=== PATIENT | female | born 1980 | race Caucasian/White ===

== ENCOUNTER 2020-09-18 22:52 | Inpatient (IN) | payer BC, MEDICAID, SELFPAY ==
[2020-09-18 22:53] VITALS: BP 139/90; PULSE 106; RESP 16; TEMP 36.8; O2SAT 98; BMI 30.9
--- NOTE | 2020-09-18 23:13 | EDS_ITS ---
HPI History of Present Illness Chief Complaint: Substance Abuse Narrative Narrative: Patient requesting alcohol detox. She has had approximately 10 drinks of malt liquor today. She drinks daily. She has been through detox in May of this year at an out lying facility. Stated she does not do any other illicit drug use. Open to get clean. Denies . [facility] Medical History (Updated 09/18/20 @ 23:14 by Lu Nguyen) Asthma Bulging of cervical intervertebral disc Post concussive syndrome Sciatic nerve pain Home Medications buspirone [BuSpar] 10 mg PO PRN PRN 09/18/20 [History Last Taken Unknown] buspirone [BuSpar] 10 mg PO QHS 09/18/20 [History Last Taken Unknown] gabapentin 650 mg PO TID 09/18/20 [History Last Taken Unknown] hydroxyzine pamoate [Vistaril] 25 mg PO BID 09/18/20 [History Last Taken Unknown] methocarbamol [Robaxin] 750 mg PO Q8H 09/18/20 [History Last Taken Unknown] paroxetine HCl [Paxil] 30 mg PO DAILY 09/18/20 [History Last Taken Unknown] Allergy/AdvReac Type Severity Reaction Status Date / Time No Known Allergies Allergy Verified 09/18/20 22:54 Social History Smoking Status: Current every day smoker tobacco type: cigarettes ROS ROS ED ROS Narrative ROS General: Denies fever, chills, sweats Eyes: Denies visual changes, blurred vision, double vision ENT: Denies ear pain, rhinorrhea, sore throat Cardiovascular: Denies chest pain, palpitations, heart racing Respiratory: Denies dyspnea, cough, sputum, dyspnea on exertion, orthopnea,PND GI: Denies abdominal pain, nausea, vomiting, diarrhea, constipation, melena : Denies dysuria, hematuria, frequency Musculoskeletal: Denies myalgias, arthralgias, neck pain, back pain Skin: Denies rash, abscess, abrasions Neuro: Denies headache, weakness, paresthesia Psych: Denies depression, anxiety Endo: Denies polyuria, polydipsia, polyphagia Heme: Denies easy bruising, easy bleeding, lymphadenopathy Allergy: Denies hives, swelling EXAM Physical Exam Narrative Exam Narrative: Vital signs reviewed General: Well-nourished well-developed Head: Normocephalic atraumatic Eyes: Pupils equal round and reactive to light extraocular movements intact ENT: TMs clear no hemotympanum no trauma Neck: Nontender full range of motion Cardiovascular: Regular rate rhythm no murmurs normal S1-S2 Respiratory: No distress clear to auscultation bilaterally chest nontender Abdomen: Soft nontender nondistended normal bowel sounds no masses Back: Nontender no CVA tenderness Extremities: Nontender active range of motion ?4 extremities no trauma Skin: Normal color no trauma Neuro alert oriented cranial nerves II through XII intact normal strength sensation reflexes Const Vital Signs: 09/18/20 22:53 09/18/20 23:35 Temperature 98.2 F 98.2 F Temperature Source Temporal Temporal Pulse Rate 106 H 106 H Respiratory Rate 16 16 Blood Pressure 139/90 H 139/90 H Blood Pressure Mean 106 106 Blood Pressure Source Monitor Blood Pressure Position Semi-Fowlers Pulse Ox 98 98 Oxygen Delivery Method Room Air Room Air MDM MDM MDM Narrative Medical decision making narrative: Screening lab work will be undertaken. Patient will be medically cleared and discussed with the hospitalist. Lab work obtained shows nothing acute other than potassium of 3.2. Urine opiate screen positive for opiates. Alcohol level 244. Patient stable for admission Lab Data Labs: Laboratory Results - last 24 hr 09/18/20 09/18/20 09/18/20 23:05 23:30 23:30 WBC 9.8 RBC 4.35 Hgb 14.1 Hct 39.4 MCV 90.6 MCH 32.4 H MCHC 35.8 RDW Std Deviation 43.5 RDW Coeff of Candy 13.2 Plt Count 280 MPV 8.8 Immature Gran % (Auto) 0.600 Neut % (Auto) 58.0 Lymph % (Auto) 29.2 [place] % (Auto) 8.7 Eos % (Auto) 2.9 Baso % (Auto) 0.6 Absolute Neuts (auto) 5.7 Absolute Lymphs (auto) 2.86 Nucleated RBC % 0 Sodium 140 Potassium 3.2 L Chloride 103 Carbon Dioxide 30.0 Anion Gap 7 BUN 4 L Creatinine 0.78 Estim Creat Clear Calc 86.27 Est GFR (MDRD) Af Amer 105 Est GFR (MDRD) Non-Af 87 BUN/Creatinine Ratio 5.1 L Glucose 154 H Calcium 8.2 L Total Bilirubin 0.30 Direct Bilirubin 0.09 AST 22 ALT 38 Alkaline Phosphatase 106 Total Protein 7.8 Albumin 3.7 Globulin 4.1 Serum , Qual Urine Opiates Screen POSITIVE H Urine Methadone Screen NEGATIVE Ur Barbiturates Screen NEGATIVE Ur Phencyclidine Scrn NEGATIVE Ur Amphetamines Screen NEGATIVE U Methamphetamin-MDMA NEGATIVE U Benzodiazepines Scrn NEGATIVE Urine Cocaine Screen NEGATIVE U Cannabinoids Screen NEGATIVE Ur Drug Screen Comment Ethyl Alcohol 09/18/20 09/18/20 23:30 23:30 WBC RBC Hgb Hct MCV MCH MCHC RDW Std Deviation RDW Coeff of Candy Plt Count MPV Immature Gran % (Auto) Neut % (Auto) Lymph % (Auto) [place] % (Auto) Eos % (Auto) Baso % (Auto) Absolute Neuts (auto) Absolute Lymphs (auto) Nucleated RBC % Sodium Potassium Chloride Carbon Dioxide Anion Gap BUN Creatinine Estim Creat Clear Calc Est GFR (MDRD) Af Amer Est GFR (MDRD) Non-Af BUN/Creatinine Ratio Glucose Calcium Total Bilirubin Direct Bilirubin AST ALT Alkaline Phosphatase Total Protein Albumin Globulin Serum , Qual NEGATIVE Urine Opiates Screen Urine Methadone Screen Ur Barbiturates Screen Ur Phencyclidine Scrn Ur Amphetamines Screen U Methamphetamin-MDMA U Benzodiazepines Scrn Urine Cocaine Screen U Cannabinoids Screen Ur Drug Screen Comment Ethyl Alcohol 244.0 Discharge Plan Triage Chief Complaint: Substance Abuse ED Provider: Eze Mccarty
[2020-09-18 23:35] VITALS: BP 139/90; PULSE 106; RESP 16; TEMP 36.8; O2SAT 98
[2020-09-18 23:41] LABS: Absolute Lymphocyte Count 2.86 X10^3/uL (0.83-4.51); Absolute Neutrophil Count 5.7 X10^3/uL (2.0-7.7); Basophil# 0.06 X10^3/uL; Basophil% 0.6 % (0-1); Eosinophil# 0.28 X10^3/uL; Eosinophils% 2.9 % (0-5); Hematocrit 39.4 % (37-47); Hemoglobin 14.1 g/dL (12.0-15.0); Lymphocyte # 2.86 X10^3/ul (0.83-4.51); Lymphocyte % 29.2 % (19-41); Mean Corp Hgb Conc 35.8 g/dL (32-36); Mean Corpuscular Hgb 32.4 pg (27.0-32.0); Mean Corpuscular Volume 90.6 fL (81-99); Mean Platelet Vol. 8.8 fl (6.2-12.0); Monocyte# 0.85 X10^3/uL; Monocyte% 8.7 % (0-10); NRBC Flagged by Analyzer 0 % (0-5); Platelet Count 280 K/mm3 (150-450); RBC Distribution Width CV 13.2 % (11.6-14.6); RBC Distribution Width SD 43.5 fl (35.1-43.9); Red Blood Count 4.35 M/mm3 (4.2-5.4); White Blood Count 9.8 K/mm3 (4.4-11.0)
[2020-09-18 23:52] LABS: Internal QC Validated? YES +Cl - CLEAR BKGD; Pregnancy, Serum, hCG Quali. NEGATIVE Negative
[2020-09-19] VITALS (7 sets, daily range): BP systolic 96–117; BP diastolic 47–85; PULSE 79–98; RESP 14–16; TEMP 36.4–37.2; O2SAT 95–99; BMI 30.7
[2020-09-19] LABS: AST(SGOT) 22 U/L (15-37); Alanine Aminotransfer ALT/SGPT 38 U/L (13-56); Albumin, Serum 3.7 g/dL (3.2-5.0); Alkaline Phosphatase 106 U/L (45-117); Anion Gap 7 (5-15); BUN 4 mg/dL (7-18); BUN/Creat Ratio 5.1 RATIO (10-20); Bilirubin, Direct 0.09 mg/dL (0.00-0.30); Calcium,Total 8.2 mg/dL (8.5-10.1); Chloride 103 mmol/L (98-107); Creatinine, Serum 0.78 mg/dL (0.55-1.02); EST Glomerular Filtration Rate 87 mL/min (>60); Est Glom Filt Rate - Afr Amer 105 mL/min (>60); Estimated Creatinine Clearance 86.27 ml/min; Globulin 4.1 g/dL (2.2-4.2); Glucose 154 mg/dL (74-106); Potassium 3.2 mmol/L (3.5-5.1); Protein, Total 7.8 g/dL (6.4-8.2); Sodium Level 140 mmol/L (136-145)
[2020-09-19 00:10] LABS: Amphetamine Urine VISTA NEGATIVE (<1000 ng/mL); Barbiturate Urine VISTA NEGATIVE (< 200 ng/mL); Benzodiazepine Urine VISTA NEGATIVE (< 200 ng/mL); Cocaine Urine VISTA NEGATIVE (< 300 ng/mL); Ecstacy Urine VISTA NEGATIVE (< 500 ng/mL); Methadone Urine VISTA NEGATIVE (< 300 ng/mL); PCP Urine VISTA NEGATIVE (< 25 ng/mL); THC Urine VISTA NEGATIVE (< 50 ng/mL); Vista UDS pH Range 6
--- NOTE | 2020-09-19 00:37 | HP.PCM_ITS ---
Documented by User: Jyotsna Douglas NP-C 09/19/20 00:52 HPI - General General Date of Admission: 09/19/20 HPI Narrative XANDER FLORES, is a 40 F who presents for detoxification from alcohol. Patient states that she currently drinks 32 to 64 ounces of Heineken or Gil's hard lemonade every night along with smoking 1-2 marijuana joints weekly. Patient also is 1/2 to 1 pack/day smoker of cigarettes. 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 [facility] Medical History (Updated 09/19/20 @ 01:03 by Nuria Ayala) ADHD Alcohol abuse Anxiety Asthma Bulging of cervical intervertebral disc Chronic pain COPD (chronic obstructive pulmonary disease) Depression H/O multiple concussions Post concussive syndrome Sciatic nerve pain Smoker Substance abuse Home Medications buspirone [BuSpar] 10 mg PO QHS 09/18/20 [History Last Taken 09/17/20 23:30] gabapentin 600 mg PO TID 09/18/20 [History Last Taken 09/18/20 16:00] hydroxyzine pamoate [Vistaril] 25 mg PO BID 09/18/20 [History Last Taken 09/17/20 23:30] methocarbamol [Robaxin] 750 mg PO Q8H 09/18/20 [History Last Taken 09/17/20 23:30] paroxetine HCl [Paxil] 60 mg PO DAILY 09/18/20 [History Last Taken 09/18/20 09 :30] Allergy/AdvReac Type Severity Reaction Status Date / Time No Known Allergies Allergy Verified 09/18/20 22:54 Social History Smoking Status: Current every day smoker tobacco type: cigarettes ROS Constitutional Constitutional: Denies anorexia, chills or fatigue Cardiovascular Cardiovascular: Denies chest pain, edema or palpitations Respiratory/Chest Respiratory/Chest: Denies cough, shortness of breath at rest or shortness of breath with exertion Gastrointestinal Gastrointestinal: Denies abdominal pain, constipation, diarrhea, nausea or vomiting Genitourinary Genitourinary: Denies dysuria Musculoskeletal Musculoskeletal: Denies back pain, extremity pain, joint pain or joint stiffness Integumentary Integumentary: Denies dry skin Neurologic Neurologic: Denies abnormal gait, abnormal speech, confusion or dizziness Psychiatric Psychiatric: Reports anxiety; Denies depression Endocrine Endocrinology: Denies cold intolerance or heat intolerance Hematologic/Lymphatic Hematologic/Lymphatic: Denies easy bleeding or easy bruising Vital Signs Vital Signs Vital Signs: 09/18/20 22:53 09/18/20 23:35 09/19/20 00:28 Temperature 98.2 F 98.2 F 97.5 F L Temperature Source Temporal Temporal Temporal Pulse Rate 106 H 106 H 94 Respiratory Rate 16 16 14 Blood Pressure 139/90 H 139/90 H 117/67 Blood Pressure Mean 106 106 83 Blood Pressure Source Monitor Blood Pressure Position Semi-Fowlers Pulse Ox 98 98 99 Oxygen Delivery Method Room Air Room Air Room Air Weight Weight: 186 lb 3.2 oz Body Mass Index (BMI) 30.9 Physical Exam Const alert and oriented x3 General Appearance: cooperative HEENT normocephalic and head/scalp atraumatic Neck supple, no JVD and thyroid normal General: trachea midline Lymph Lymphatic: no lymphadenopathy noted Resp normal respiratory effort, normal air movement and clear to auscultation bilaterally Cardio regular rate, regular rhythm, S1 normal heart sound and S2 normal heart sound GI normal to inspection, nondistended, normoactive bowel sounds, soft to palpation and non-tender Extremity normal capillary refill and no clubbing, cyanosis or edema General Extremity: no tenderness to palpation of joints or extremities Skin General Skin Exam: no breakdown and turgor normal Lesions: no lesions Rashes: no rashes Neuro CN's II-XII intact bilaterally Psych thought process normal and cooperative Mood & Affect: anxious Lab / Micro Data Result Diagrams: 09/18/20 23:30 09/18/20 23:30 Labs: Laboratory Results - last 24 hr 09/18/20 09/18/20 09/18/20 23:05 23:30 23:30 WBC 9.8 RBC 4.35 Hgb 14.1 Hct 39.4 MCV 90.6 MCH 32.4 H MCHC 35.8 RDW Std Deviation 43.5 RDW Coeff of Candy 13.2 Plt Count 280 MPV 8.8 Immature Gran % (Auto) 0.600 Neut % (Auto) 58.0 Lymph % (Auto) 29.2 [place] % (Auto) 8.7 Eos % (Auto) 2.9 Baso % (Auto) 0.6 Absolute Neuts (auto) 5.7 Absolute Lymphs (auto) 2.86 Nucleated RBC % 0 Sodium 140 Potassium 3.2 L Chloride 103 Carbon Dioxide 30.0 Anion Gap 7 BUN 4 L Creatinine 0.78 Estim Creat Clear Calc 86.27 Est GFR (MDRD) Af Amer 105 Est GFR (MDRD) Non-Af 87 BUN/Creatinine Ratio 5.1 L Glucose 154 H Calcium 8.2 L Total Bilirubin 0.30 Direct Bilirubin 0.09 AST 22 ALT 38 Alkaline Phosphatase 106 Total Protein 7.8 Albumin 3.7 Globulin 4.1 Serum , Qual Urine Opiates Screen POSITIVE H Urine Methadone Screen NEGATIVE Ur Barbiturates Screen NEGATIVE Ur Phencyclidine Scrn NEGATIVE Ur Amphetamines Screen NEGATIVE U Methamphetamin-MDMA NEGATIVE U Benzodiazepines Scrn NEGATIVE Urine Cocaine Screen NEGATIVE U Cannabinoids Screen NEGATIVE Ur Drug Screen Comment Ethyl Alcohol 09/18/20 09/18/20 23:30 23:30 WBC RBC Hgb Hct MCV MCH MCHC RDW Std Deviation RDW Coeff of Candy Plt Count MPV Immature Gran % (Auto) Neut % (Auto) Lymph % (Auto) [place] % (Auto) Eos % (Auto) Baso % (Auto) Absolute Neuts (auto) Absolute Lymphs (auto) Nucleated RBC % Sodium Potassium Chloride Carbon Dioxide Anion Gap BUN Creatinine Estim Creat Clear Calc Est GFR (MDRD) Af Amer Est GFR (MDRD) Non-Af BUN/Creatinine Ratio Glucose Calcium Total Bilirubin Direct Bilirubin AST ALT Alkaline Phosphatase Total Protein Albumin Globulin Serum , Qual NEGATIVE Urine Opiates Screen Urine Methadone Screen Ur Barbiturates Screen Ur Phencyclidine Scrn Ur Amphetamines Screen U Methamphetamin-MDMA U Benzodiazepines Scrn Urine Cocaine Screen U Cannabinoids Screen Ur Drug Screen Comment Ethyl Alcohol 244.0 Assessment & Plan Assessment/Plan (1) Acute alcoholism: PLAN: 1. Alcohol dependence -Admit to [facility] as part of [facility] program -Phenobarbital taper ordered along with supportive medications for withdrawal symptoms -[facility] protocol ordered -Vital signs per protocol -Oxygen therapy per protocol -Consult case management for coordination with 180 outpatient treatment follow- up 2. Bulging of cervical intervertebral disc -Continue gabapentin 600 mg p.o. 3 times daily 3. Depression and anxiety -Continue paroxetine 60 mg p.o. daily 4. Restless leg syndrome -Continue methocarbamol. DVT prophylaxis-ambulation, no pharmacological prophylaxis indicated This patient was seen by SAM Cobb under the supervision of Dr. Novak. Documented by User: Dr. Guzman Novak, 09/19/20 01:17 HPI - General General Date of Admission: 09/19/20 [facility] Medical History (Updated 09/19/20 @ 01:03 by Nuria Ayala) ADHD Alcohol abuse Anxiety Asthma Bulging of cervical intervertebral disc Chronic pain COPD (chronic obstructive pulmonary disease) Depression H/O multiple concussions Post concussive syndrome Sciatic nerve pain Smoker Substance abuse Home Medications buspirone [BuSpar] 10 mg PO QHS 09/18/20 [History Last Taken 09/17/20 23:30] gabapentin 600 mg PO TID 09/18/20 [History Last Taken 09/18/20 16:00] hydroxyzine pamoate [Vistaril] 25 mg PO BID 09/18/20 [History Last Taken 09/17/20 23:30] methocarbamol [Robaxin] 750 mg PO Q8H 09/18/20 [History Last Taken 09/17/20 23:30] paroxetine HCl [Paxil] 60 mg PO DAILY 09/18/20 [History Last Taken 09/18/20 09:30] Allergy/AdvReac Type Severity Reaction Status Date / Time No Known Allergies Allergy Verified 09/18/20 22:54 Social History Smoking Status: Current every day smoker tobacco type: cigarettes Lab / Micro Data Result Diagrams: 09/18/20 23:30 09/18/20 23:30 Addendum Addendum: Patient was seen and examined today independently of Geronimo Douglas, she came to the emergency room today at [facility] requesting services for alcohol detox, patient admits to drinking approximately 6 malt liquor type drinks per day. Her last drink was yesterday. Labs obtained on the patient showed a tox screen positive for opiates, patient's potassium was low at 3.2, glucose was 154, blood alcohol level was 244. On examination she appeared mildly anxious, she does not appear to be in any distress. Vital signs as documented. Skin warm and dry and without overt rashes. Neck without JVD, thyroid appears normal, trachea is midline, neck is supple. Lungs clear, normal air movement was noted. Heart exam notable for regular rhythm, normal sounds and absence of murmurs, rubs or gallops. Abdomen unremarkable and without evidence of organomegaly, masses, or abdominal aortic enlargement, bowel sounds are present in all 4 quadrants, no abdominal tenderness was noted. Extremities nonedematous, no cyanosis was noted, no clubbing was noted. Neuro: Cranial nerves II through XII are grossly intact, no focal motor deficits were noted, sensation to light touch and pinprick is intact, motor exam 5/5 throughout. Psych: Patient is alert and oriented x3, she does not appear anxious or depressed, she does not appear agitated. Patient will be admitted to [facility] for acute alcohol withdrawal, orders were put in using the alcohol detox order set. I have reviewed Geronimo Douglas's history and physical including her medical assessment and plan of care and endorse it. Visit Charges Inpatient E&M: 74867 Init Hosp L3
[2020-09-19] MEDS: Phenobarbital 32.4 MG Tablet PO ×6 (01:52→21:38)
[2020-09-19] MEDS: Methocarbamol 750 MG Tablet PO ×3 (01:52→17:42)
[2020-09-19] MEDS: hydrOXYzine PAM 25 MG Capsule PO ×3 (01:54→21:40)
[2020-09-19] MEDS: Gabapentin 600 MG Tablet PO ×3 (05:35→21:40)
--- NOTE | 2020-09-19 07:45 | PCM.PN.HOSP ---
Subjective Subjective The patient is admitted for acute alcohol withdrawal syndrome. Currently anxious and restless. She occasionally takes hydrocodone for wrist pain otherwise denied IV substance use. Objective Data Objective Data Vital Signs: Vital Signs Temp Pulse Resp BP Pulse Ox 98.3 F 88 16 96/55 L 95 09/19/20 05:29 09/19/20 05:29 09/19/20 05:29 09/19/20 05:29 09/19/20 05:29 Oxygen Delivery Method Room Air Weight: 184 lb 8.43 oz Body Mass Index (BMI) 30.7 Intake & Output: Intake and Output for Last 24 Hours 09/17/20 09/18/20 09/19/20 23:59 23:59 23:59 Intake Total 400 / 400 Balance 400 / 400 Lab / Micro Data Result Diagrams: 09/18/20 23:30 09/18/20 23:30 Labs: Laboratory Results - last 24 hr 09/18/20 09/18/20 09/18/20 23:05 23:30 23:30 WBC 9.8 RBC 4.35 Hgb 14.1 Hct 39.4 MCV 90.6 MCH 32.4 H MCHC 35.8 RDW Std Deviation 43.5 RDW Coeff of Candy 13.2 Plt Count 280 MPV 8.8 Immature Gran % (Auto) 0.600 Neut % (Auto) 58.0 Lymph % (Auto) 29.2 [place] % (Auto) 8.7 Eos % (Auto) 2.9 Baso % (Auto) 0.6 Absolute Neuts (auto) 5.7 Absolute Lymphs (auto) 2.86 Nucleated RBC % 0 Sodium 140 Potassium 3.2 L Chloride 103 Carbon Dioxide 30.0 Anion Gap 7 BUN 4 L Creatinine 0.78 Estim Creat Clear Calc 86.27 Est GFR (MDRD) Af Amer 105 Est GFR (MDRD) Non-Af 87 BUN/Creatinine Ratio 5.1 L Glucose 154 H Calcium 8.2 L Total Bilirubin 0.30 Direct Bilirubin 0.09 AST 22 ALT 38 Alkaline Phosphatase 106 Total Protein 7.8 Albumin 3.7 Globulin 4.1 Serum , Qual Urine Opiates Screen POSITIVE H Urine Methadone Screen NEGATIVE Ur Barbiturates Screen NEGATIVE Ur Phencyclidine Scrn NEGATIVE Ur Amphetamines Screen NEGATIVE U Methamphetamin-MDMA NEGATIVE U Benzodiazepines Scrn NEGATIVE Urine Cocaine Screen NEGATIVE U Cannabinoids Screen NEGATIVE Ur Drug Screen Comment Ethyl Alcohol 09/18/20 09/18/20 23:30 23:30 WBC RBC Hgb Hct MCV MCH MCHC RDW Std Deviation RDW Coeff of Candy Plt Count MPV Immature Gran % (Auto) Neut % (Auto) Lymph % (Auto) [place] % (Auto) Eos % (Auto) Baso % (Auto) Absolute Neuts (auto) Absolute Lymphs (auto) Nucleated RBC % Sodium Potassium Chloride Carbon Dioxide Anion Gap BUN Creatinine Estim Creat Clear Calc Est GFR (MDRD) Af Amer Est GFR (MDRD) Non-Af BUN/Creatinine Ratio Glucose Calcium Total Bilirubin Direct Bilirubin AST ALT Alkaline Phosphatase Total Protein Albumin Globulin Serum , Qual NEGATIVE Urine Opiates Screen Urine Methadone Screen Ur Barbiturates Screen Ur Phencyclidine Scrn Ur Amphetamines Screen U Methamphetamin-MDMA U Benzodiazepines Scrn Urine Cocaine Screen U Cannabinoids Screen Ur Drug Screen Comment Ethyl Alcohol 244.0 Physical Exam Narrative General: Lethargic, oriented x3. Mild drowsy HEENT: Atraumatic, PERRLA, EOMI, Normocephalic Oral: No Gingival or Mucosal Lesions/ Ulcerations Neck: Supple, No JVD, Negative Carotid Bruits Lungs: Air entry diminished in bilateral lung bases. No crepitation/rhonchi Cardiovascular: Regular rate, Regular Rhythm, Normal S1, Normal S2, No murmurs Abdomen: Bowel Sounds Present, Soft, Non Tender, Non-Distended : No renal angle tenderness. No suprapubic tenderness. Extremities: No edema, Capillary Refill Less than 3 Seconds Skin: No rashes, No breakdown Musculoskeletal: No tenderness over wrist joint. No Tenderness to Palpation of Joints or Extremities Neurological: Cranial nerves II-XII grossly intact, Deep Tendon Reflexes 2+/4 and Symmetrical, Neuro grossly intact Psych/Mental Status: Lethargic. Flat affect. Denies suicidal ideation or thoughts or hallucinations Assessment & Plan Assessment/Plan (1) Acute alcoholism: PLAN: The patient is admitted for acute alcohol withdrawal with history of chronic alcohol use and dependence. 1. Acute alcohol withdrawal syndrome: [facility] scheduled with taper along with other supportive medications. Mild diarrhea. Imodium ordered -WA protocol ordered -Vital signs per protocol -Oxygen therapy per protocol -Consult case management for coordination with 180 outpatient treatment follow-up 2. Bulging of cervical intervertebral disc -Continue gabapentin 600 mg p.o. 3 times daily 3. Depression and anxiety -Continue paroxetine 60 mg p.o. daily U tox positive for opioids 4. Restless leg syndrome -Continue methocarbamol. DVT prophylaxis-ambulation, no pharmacological prophylaxis indicated. Early ambulation encouraged Charges/Coding Visit Charges Inpatient E&M: 58935 Subs Hosp L2
[2020-09-19] MEDS: Thiamine Hydrochloride 100 MG Tablet PO ×2 (08:28→17:42)
[2020-09-19] MEDS: Folic Acid 1 MG Tablet PO (08:28)
[2020-09-19] MEDS: Paroxetine 20 MG Tablet 60 MG PO (08:29)
--- NOTE | 2020-09-19 11:07 | ADDICTION ---
This race and sports book writer met with PT to conduct ASAM, MSE and AUDIT assessments and to plan for discharge. PT was A+Ox4 and participated appropriately. All assessments completed, faxed to [facility] and placed in PT chart. PT requested referral to [facility]. This race and sports book writer has placed referral and is awaiting approval.
--- NOTE | 2020-09-19 11:52 | CASEMGMT ---
Social Work Note Pt is RAMP pt and listed as self-pay. SW in to speak with pt. SW introduced self and role at [facility]. Pt states she is in the process of getting approved for Medicaid. Pt states she applied for Medicaid August 22 or August 23. Pt states she is currently on medical leave from her employer. Pt states she is and her just started a new job. Pt states she is not sure about her 's insurance. SW did provide pt with HCAP application, [facility] prescription assistance resources, [employer] and [employer]. Pt is not a resident of [facility], [facility] unable to provide pt with [facility] Resources. Pt denied financial concenrns. Kira Dickens DRUM MAKER, SPOT WELDER
[2020-09-19] MEDS: busPIRone 5 MG Tablet 10 MG PO (21:38)
[2020-09-20] MEDS: Methocarbamol 750 MG Tablet PO ×3 (00:04→17:33)
[2020-09-20 02:18] VITALS: BP 118/56; PULSE 86; RESP 16; TEMP 37.2; O2SAT 98
[2020-09-20] MEDS: Phenobarbital 32.4 MG Tablet PO ×6 (02:21→21:35)
[2020-09-20] MEDS: Gabapentin 600 MG Tablet PO ×3 (06:07→21:36)
[2020-09-20] MEDS: Folic Acid 1 MG Tablet PO (08:18)
[2020-09-20] MEDS: Thiamine Hydrochloride 100 MG Tablet PO ×2 (08:18→17:33)
[2020-09-20] MEDS: Paroxetine 20 MG Tablet 60 MG PO (08:19)
[2020-09-20 08:20] VITALS: BP 124/59; PULSE 94; RESP 18; TEMP 36.7; O2SAT 96
[2020-09-20] MEDS: hydrOXYzine PAM 25 MG Capsule PO ×2 (10:05→21:35)
--- NOTE | 2020-09-20 12:44 | CT_ITS ---
STUDY: CT BRAIN WITHOUT CONTRAST REASON FOR EXAM: Female, 40 years old. H/o concussion and delayed speech, chronic alcohol RADIATION DOSAGE (If Supplied By Facility): CTDIvol = ( 44.99 ) mGy, DLP = ( 711.75 ) mGycm TECHNIQUE: Transaxial CT imaging of the brain was performed without administration of intravenous contrast material. Individualized dose optimization techniques were used for this CT. COMPARISON: No relevant priors. FINDINGS: Normal soft tissue structures. Normal calvarium. Normal size ventricles and extra-axial spaces for the patient''s age. Normal white matter tracts of the cerebral hemispheres. Normal basal ganglia and thalami. Normal brainstem. Normal cerebellum. There is no intracranial hemorrhage. There are no findings of an acute ischemic infarction. Normal visualized paranasal sinuses. CT/Brain/Head without Contrast IMPRESSION: Normal unenhanced CT scan of the brain. Electronically Signed: Pernell Dudley MD at 13:13 EDT , Service support ,
[2020-09-20 13:30] VITALS: BP 124/61; PULSE 86; RESP 18; TEMP 36.7; O2SAT 95
--- NOTE | 2020-09-20 13:37 | PCM.PN.HOSP ---
Subjective Subjective Charge nurse informed me that Dr. Mcdonald wants medical clearance prior to getting residential on Wednesday. Detailed history taken from the patient. She has history of multiple fall on head. She also claims she has been hit on head on concrete and had fallen couple times. Apparently she had CT head, more than a year ago outside and was normal as per the patient. Patient has chronic alcohol use and sometimes delayed his speech as per the patient. Overall her symptoms of aches and pain and loose bowel movement is better Objective Data Objective Data Vital Signs: Vital Signs Temp Pulse Resp BP Pulse Ox 98.1 F 86 18 124/61 H 95 09/20/20 13:30 09/20/20 13:30 09/20/20 13:30 09/20/20 13:30 09/20/20 13:30 Oxygen Delivery Method Room Air Weight: 184 lb 8.43 oz Body Mass Index (BMI) 30.7 Intake & Output: Intake and Output for Last 24 Hours 09/18/20 09/19/20 09/20/20 23:59 23:59 23:59 Intake Total 2600 / 2600 1000 / 1000 Balance 2600 / 2600 1000 / 1000 Lab / Micro Data Result Diagrams: 09/18/20 23:30 09/18/20 23:30 Radiography Diagnostic Testing: Radiology Impression Brain CT 09/20/20 12:44 IMPRESSION: Normal unenhanced CT scan of the brain. Electronically Signed: Pernell Dudley MD at 13:13 EDT , Service support , Physical Exam Narrative General: Lethargic, oriented x3. Mild drowsy HEENT: Atraumatic, PERRLA, EOMI, Normocephalic Oral: No Gingival or Mucosal Lesions/ Ulcerations Neck: Supple, No JVD, Negative Carotid Bruits Lungs: Air entry diminished in bilateral lung bases. No crepitation/rhonchi Cardiovascular: Regular rate, Regular Rhythm, Normal S1, Normal S2, No murmurs Abdomen: Bowel Sounds Present, Soft, Non Tender, Non-Distended : No renal angle tenderness. No suprapubic tenderness. Extremities: No edema, Capillary Refill Less than 3 Seconds Skin: No rashes, No breakdown Musculoskeletal: No tenderness over wrist joint. No Tenderness to Palpation of Joints or Extremities Neurological: Cranial nerves II-XII grossly intact, Deep Tendon Reflexes 2+/4 and Symmetrical, Neuro grossly intact Psych/Mental Status: Lethargic. Flat affect. Denies suicidal ideation or thoughts or hallucinations Assessment & Plan Assessment/Plan (1) Acute alcoholism: PLAN: The patient is admitted for acute alcohol withdrawal with history of chronic alcohol use and dependence. 1. Acute alcohol withdrawal syndrome: -Admit to [facility] on phenobarbital protocol scheduled with taper along with other supportive medications. Mild diarrhea. Imodium ordered -CIWA protocol ordered -Vital signs per protocol -Oxygen therapy per protocol -Consult case management for coordination with 180 outpatient treatment follow-up 2. History of fall/head injury with bulging of cervical intervertebral disc -Continue gabapentin 600 mg p.o. 3 times daily After taking the history, patient is not officially diagnosed with concussion or skull bone fracture by medical health care provider or physician. CT head without contrast was done and reported normal. Patient is medically stable for discharge to inpatient drug rehab. I called Dr. Dickens to inform about her concern regarding head injury and left a voice message to call back. 3. Depression and anxiety -Continue paroxetine 60 mg p.o. daily U tox positive for opioids 4. Restless leg syndrome -Continue methocarbamol. DVT prophylaxis-ambulation, no pharmacological prophylaxis indicated. Early ambulation encouraged Charges/Coding Visit Charges Inpatient E&M: 86852 Subs Hosp L2
[2020-09-20 18:00] VITALS: BP 109/54; PULSE 84; RESP 16; TEMP 36.6; O2SAT 100
[2020-09-20 18:28] VITALS: BP 118/70; PULSE 84; RESP 16; TEMP 36.6; O2SAT 100
[2020-09-20 20:45] VITALS: BP 108/50; PULSE 80; RESP 18; TEMP 36.8; O2SAT 98
[2020-09-20] MEDS: busPIRone 5 MG Tablet 10 MG PO (21:35)
[2020-09-20] MEDS: 0.9% Saline Lock 10 ML Syringe IV (21:36)
[2020-09-21] MEDS: Phenobarbital 32.4 MG Tablet PO ×5 (01:39→21:42)
[2020-09-21] MEDS: Methocarbamol 750 MG Tablet PO ×3 (01:40→18:04)
[2020-09-21 01:43] VITALS: BP 108/65; PULSE 89; RESP 18; TEMP 37.1; O2SAT 96
[2020-09-21 06:04] VITALS: BP 95/72; PULSE 73; RESP 18; TEMP 36.4; O2SAT 99
[2020-09-21] MEDS: Gabapentin 600 MG Tablet PO ×3 (06:11→21:42)
[2020-09-21] MEDS: Ibuprofen 600 MG Tablet PO (06:11)
--- NOTE | 2020-09-21 06:37 | PN_ITS ---
Progress Note Patient overnight with no acute events per self and nursing report. Patient notes that withdrawal symptoms have continued is significantly improved and she remains eager for consideration for inpatient rehab Wednesday. Given patient history there was some concern for possible intracranial injury secondary to falls therefore CT of the head was obtained and demonstrated no acute intracranial findings. Only patient complaint from overnight was increased restless leg syndrome and patient noted amenability to trialing Mirapex. Patient denies fevers, chills, nausea, emesis, abdominal pain, chest pain or dyspnea. Physical Exam Narrative Brain CT 09/20/20 12:44 IMPRESSION: Normal unenhanced CT scan of the brain. Electronically Signed: Pernell Dudley MD at 13:13 EDT , Service support , Temp Pulse Resp BP Pulse Ox 97.8 F 82 16 109/63 96 09/21/20 11:59 09/21/20 11:59 09/21/20 11:59 09/21/20 11:59 09/21/20 11:59 Physical Examination: General: awake, alert, oriented x 3 and cooperative, seated upright in the medical surgical bed in no apparent distress. Skin: normal color, normal turgor, no icterus, no cyanosis except occasional staged ecchymoses to the extremities. HEENT: AT/NC, EOMI, PERRLA, MMM. Lungs: CTA bilaterally, moderate effort, mild decrease BL bases, no rales, ronchi or wheezing. Heart: Regular rate and rhythm; no gallop, rub audible. Abdomen: soft, obese, NTTP, ND, normal BS. Extremities: no cyanosis, clubbing, or edema. Neurological: patient awake, alert, oriented as noted, cognitive function intact; pupils equally reactive to light and accommodation, cranial nerves II- XII grossly normal, moving all 4 extremities, no focal deficits, strength mildly global decrease secondary to acute presentation, no evidence of tremor cur rently. Psychiatric: affect appears normal, no acute evidence of depressive or anxiety feelings. Assessment & Plan Assessment/Plan (1) Acute alcoholism: PLAN: The patient is a 40 y/o F w/ PMHx: EtOH abuse, Anxiety and Depression, Obesity, Tobacco use, RLS, Chronic RUE radiculopathy secondary to DDD cervical spine who presents to the [facility] ED on 09/19/20 with acute alcohol withdrawal with treatment request. 1. Acute EtOH Withdrawal: Patient admitted to medical surgical floor, routine labs obtained in the ED upon presentation. Given interest in sobriety, initiated and continued on protocol with taper course of Phenobarbital, scheduled gabapentin for seizure prophylaxis, as needed Catapres, Bentyl, Vistaril, IV fluids, IV antiemetics, Tylenol as needed for pain. Will consult Case management for assistance for transition to next level of rehabilitation care. Mag, phos pending. Maintain on CIWA protocol concurrently. 2. Hypokalemia: Admission K+ 3.2, magnesium and phosphorus levels requested, will supplement if repeat BMP notable for continued hypokalemia. 3. Anxiety and depression: We will continue patient home BuSpar and paroxetine regimen. 4. Cervical degenerative disc disease with chronic radiculopathy, pain: We will continue patient home gabapentin, Robaxin regimen. 5. Obesity: Weight loss and lifestyle changes encouraged. 6. Tobacco Abuse: Encouraged cessation, inpatient consultation per RT, NR if desired. 7. Restless leg syndrome: We will add low-dose nightly Mirapex, reassess for efficacy. 8. DVT prophylaxis: Low risk, encourage ambulation. Visit Charges Inpatient E&M: 04589 Subs Hosp L2
[2020-09-21] MEDS: Thiamine Hydrochloride 100 MG Tablet PO ×2 (08:56→18:04)
[2020-09-21] MEDS: hydrOXYzine PAM 25 MG Capsule PO ×2 (08:56→21:42)
[2020-09-21] MEDS: Paroxetine 20 MG Tablet 60 MG PO (08:56)
[2020-09-21] MEDS: Folic Acid 1 MG Tablet PO (08:56)
[2020-09-21 11:59] VITALS: BP 109/63; PULSE 82; RESP 16; TEMP 36.6; O2SAT 96
[2020-09-21 15:15] LABS: Anion Gap 4 (5-15); BUN 12 mg/dL (7-18); BUN/Creat Ratio 11.9 RATIO (10-20); Calcium,Total 8.4 mg/dL (8.5-10.1); Chloride 103 mmol/L (98-107); Creatinine, Serum 1.01 mg/dL (0.55-1.02); EST Glomerular Filtration Rate 64 mL/min (>60); Est Glom Filt Rate - Afr Amer 78 mL/min (>60); Estimated Creatinine Clearance 66.63 ml/min; Glucose 103 mg/dL (74-106); Potassium 4.2 mmol/L (3.5-5.1); Sodium Level 138 mmol/L (136-145)
[2020-09-21 18:09] VITALS: BP 122/69; PULSE 96; RESP 18; TEMP 36.6; O2SAT 97
[2020-09-21 20:05] VITALS: BP 111/59; PULSE 82; RESP 16; TEMP 36.9; O2SAT 98
[2020-09-21] MEDS: Pramipexole Di-HCl 0.5 MG Tablet PO (21:42)
[2020-09-21] MEDS: busPIRone 5 MG Tablet 10 MG PO (21:43)
[2020-09-22] MEDS: Methocarbamol 750 MG Tablet PO ×3 (01:54→16:27)
[2020-09-22 01:55] VITALS: BP 104/60; PULSE 78; RESP 16; TEMP 36.4; O2SAT 95
[2020-09-22] MEDS: Gabapentin 600 MG Tablet PO ×3 (05:00→21:08)
[2020-09-22] MEDS: Phenobarbital 32.4 MG Tablet PO ×4 (05:00→21:08)
--- NOTE | 2020-09-22 06:32 | PN.HOSP_ITS ---
Subjective Subjective Patient notes no acute events overnight per self and also per nursing report. Patient notes restless legs significantly improved with nightly Requip regimen and would like to continue. She denies any current ongoing withdrawal symptoms and feels improved. Patient remains amenable to transition to aggressive with drawal program Wednesday. Patient denies fevers, chills, nausea, emesis, abdominal pain, chest pain or dyspnea. Objective Data Objective Data Vital Signs: Vital Signs Temp Pulse Resp BP Pulse Ox 97.5 F L 78 16 104/60 95 09/22/20 01:55 09/22/20 01:55 09/22/20 01:55 09/22/20 01:55 09/22/20 01:55 Oxygen Delivery Method Room Air Weight: 184 lb 8.43 oz Body Mass Index (BMI) 30.7 Intake & Output: Intake and Output for Last 24 Hours 09/20/20 09/21/20 09/22/20 23:59 23:59 23:59 Intake Total 1600 / 2600 3200 / 3200 Balance 1600 / 2600 3200 / 3200 Lab / Micro Data Result Diagrams: 09/18/20 23:30 09/21/20 14:44 Labs: Laboratory Results - last 24 hr 09/21/20 14:44 Sodium 138 Potassium 4.2 Chloride 103 Carbon Dioxide 31.0 Anion Gap 4 L BUN 12 Creatinine 1.01 Estim Creat Clear Calc 66.63 Est GFR (MDRD) Af Amer 78 Est GFR (MDRD) Non-Af 64 BUN/Creatinine Ratio 11.9 Glucose 103 Calcium 8.4 L Phosphorus 3.0 Magnesium 2.0 Physical Exam Narrative Physical Examination: General: awake, alert, oriented x 3 and cooperative, laying in the medical surgical bed in no apparent distress, notes she slept well withy controlled RLS. Skin: normal color, normal turgor, no icterus, no cyanosis except occasional staged ecchymoses to the extremities. HEENT: AT/NC, EOMI, PERRLA, MMM. Lungs: CTA bilaterally, moderate effort, mild decrease BL bases, no rales, ronchi or wheezing. Heart: Regular rate and rhythm; no gallop, rub audible. Abdomen: soft, obese, NTTP, ND, normal BS. Extremities: no cyanosis, clubbing, or edema. Neurological: patient awake, alert, oriented as noted, cognitive function intact; pupils equally reactive to light and accommodation, cranial nerves II- XII grossly normal, moving all 4 extremities, no focal deficits, strength mildly global decreased, improving. Psychiatric: affect appears fatigued this AM otherwise normal, no acute evidence of depressive or anxiety feelings. Assessment & Plan Assessment/Plan (1) Acute alcoholism: PLAN: The patient is a 40 y/o F w/ PMHx: EtOH abuse, Anxiety and Depression, Obesity, Tobacco use, RLS, Chronic RUE radiculopathy secondary to DDD cervical spine who presents to the [facility] ED on 09/19/20 with acute alcohol withdrawal with treatment request. 1. Acute EtOH Withdrawal: Patient admitted to medical surgical floor, routine labs obtained in the ED upon presentation. Given interest in sobriety, initiated and continued on protocol with taper course of Phenobarbital, scheduled gabapentin for seizure prophylaxis, as needed Catapres, Bentyl, Vistaril, IV fluids, IV antiemetics, Tylenol as needed for pain. Case management consulted for assistance for transition to next level of rehabilitation care. Mag, phos levels normal. Maintain on CIWA protocol concurrently. Per next transition program (medical clearance) CT head obtained with no acute intracranial findings. D/C Wednesday. 2. Hypokalemia: Admission K+ 3.2, magnesium and phosphorus levels normal, 09/22/20 K+ 4.2, normalized. 3. Anxiety and depression: Continue patient home BuSpar and paroxetine regimen. 4. Cervical degenerative disc disease with chronic radiculopathy, pain: Continue patient home gabapentin, Robaxin regimen. 5. Obesity: Weight loss and lifestyle changes encouraged. 6. Tobacco Abuse: Encouraged cessation, inpatient consultation per RT, NR if desired. 7. Restless leg syndrome: Added nightly Mirapex, notably effect per patient report, will continue, consider giving rx at discharge. 8. DVT prophylaxis: Low risk, encourage ambulation. Charges/Coding Visit Charges Inpatient E&M: 99840 Subs Hosp L2
[2020-09-22 07:57] VITALS: BP 105/49; PULSE 77; RESP 16; TEMP 36.9; O2SAT 97
[2020-09-22] MEDS: Paroxetine 20 MG Tablet 60 MG PO (09:04)
[2020-09-22] MEDS: Folic Acid 1 MG Tablet PO (09:05)
[2020-09-22] MEDS: Polyethylene Glycol 3350 17 GM PACKET PO (09:05)
[2020-09-22] MEDS: hydrOXYzine PAM 25 MG Capsule PO ×2 (09:05→21:09)
[2020-09-22 15:09] VITALS: BP 114/60; PULSE 77; RESP 16; TEMP 36.2; O2SAT 100
[2020-09-22] MEDS: Ibuprofen 600 MG Tablet PO (16:30)
[2020-09-22 21:06] VITALS: BP 114/67; PULSE 87; RESP 18; TEMP 37.1; O2SAT 97
[2020-09-22] MEDS: busPIRone 5 MG Tablet 10 MG PO (21:08)
[2020-09-22] MEDS: Acetaminophen 500 MG Tablet PO (21:09)
[2020-09-22] MEDS: Pramipexole Di-HCl 0.5 MG Tablet PO (21:16)
[2020-09-23] MEDS: Methocarbamol 750 MG Tablet PO ×2 (02:55→09:27)
[2020-09-23] MEDS: Phenobarbital 32.4 MG Tablet PO (02:55)
[2020-09-23 02:57] VITALS: BP 106/56; PULSE 80; RESP 18; TEMP 36.9; O2SAT 97
[2020-09-23] MEDS: Gabapentin 600 MG Tablet PO (05:26)
[2020-09-23 07:45] VITALS: BP 98/55; PULSE 70; RESP 18; TEMP 36.9; O2SAT 94
[2020-09-23] MEDS: Paroxetine 20 MG Tablet 60 MG PO (07:56)
[2020-09-23] MEDS: hydrOXYzine PAM 25 MG Capsule PO (07:56)
[2020-09-23] MEDS: Folic Acid 1 MG Tablet PO (07:56)
[2020-09-23] MEDS: Polyethylene Glycol 3350 17 GM PACKET PO (08:03)
--- NOTE | 2020-09-23 09:14 | PCM.DC ---
Discharge Instructions Diet Discharge Diet: No restrictions Activity Discharge Activity: Return to Normal Activity Follow Up Care Test Results: Test results from this visit will be discussed in further detail at your follow-up appointment, if applicable. Discharge Plan Admission Admit Date/Time: 09/19/20 00:55 Primary Reason for Your Visit: Acute alcohol withdrawal Attending Provider: Beverley Mota Discharge Orders/Prescriptions Prescriptions: Continued gabapentin 600 mg Tablet 600 mg PO TID RF: 0 paroxetine HCl [Paxil] 30 mg Tablet 60 mg PO DAILY RF: 0 buspirone 10 mg Tablet 10 mg PO QHS RF: 0 hydroxyzine pamoate [Vistaril] 25 mg Capsule 25 mg PO BID RF: 0 methocarbamol 750 mg Tablet 750 mg PO Q8H Qty: 90 RF: 0 Referrals / Follow Up: LUISITO TAVARES [Other] - Within 1 Month Disposition Disposition (needs filled in before D/C Order can be placed): Home, self care
--- NOTE | 2020-09-23 09:57 | CASEMGMT ---
Social Work Note SW updated by Katrin with Marlon that [facility] will be at [facility] at 11:00am to transport pt. RN updated. Kira Dickens BUILDING MAINTENANCE SUPERINTENDENT, CONFIGURATION MANAGEMENT ARCHITECT
--- NOTE | 2020-09-23 10:03 | ADDICTION ---
This health science writer met with PT to finalize d/c plan. PT to direct admit to [facility]. Transportation provided at 11am. PT amiable.
--- NOTE | 2020-09-23 11:44 | PCM.DC.SUM ---
Providers Date of Admission: 09/19/20 Primary Care Physician: LUISITO TAVARES Reason For Visit: ALCOHOL WITHDRAWL Diagnosis Discharge Diagnosis (1) Acute alcoholism: Status: Acute Code(s): F10.20 - Alcohol dependence, uncomplicated Medications at Discharge Home Medications buspirone 10 mg PO QHS 09/18/20 gabapentin 600 mg PO TID 09/18/20 hydroxyzine pamoate [Vistaril] 25 mg PO BID 09/18/20 paroxetine HCl [Paxil] 60 mg PO DAILY 09/18/20 methocarbamol 750 mg PO Q8H #90 tab 09/23/20 Hospital Course Operations None Procedures None Summary of Care Provided Minutes Spent on Discharge: 27 Hospital Course: This is a 40 years old female patient presented to the emergency room requesting admission for acute alcohol withdrawal for medical stabilization. Patient was admitted, started on alcohol withdrawal protocol with tapering phenobarbital, thiamine and folic acid supplement, as needed Ativan, as needed methocarbamol, Zofran, Vistaril, gabapentin and Imodium. Her routine blood work was unremarkable. Urine drug screen was positive for opioids. On admission, blood alcohol level was 244. With above-mentioned treatment, patient improved and she did very well. [address] [place] [address] evaluated the patient and patient was appropriate for residential treatment. Patient was discharged to be admitted to [address] [place] [address] residential treatment for acute alcohol withdrawal. She was continued on home medications including buspirone, gabapentin, Vistaril, methocarbamol and paroxetine, recommended follow-up with PCP in 2 to 4 weeks. Physical Exam Const alert, oriented x3, no apparent distress and no limitations General Appearance: cooperative, comfortable and well kempt HEENT normocephalic, head/scalp atraumatic and moist oral mucous membranes Head and Scalp: normocephalic and atraumatic Eyes PERRL, EOMs intact bilaterally, conjunctivae normal and no scleral icterus General Eye: normal appearance of both eyes Periorbital: periorbital findings normal Neck no lymphadenopathy, supple, no meningeal signs, no JVD and no carotid bruits General: trachea midline Thyroid: thyroid normal Resp normal respiratory effort, normal air movement and clear to auscultation bilaterally Auscultation: Negative for crackles, rales, rhonchi or wheezes Cardio regular rate, regular rhythm, S1 normal heart sound, S2 normal heart sound, no murmurs and no JVD Peripheral Pulses: pulses 2+ throughout GI normal to inspection, nondistended, normoactive bowel sounds, soft to palpation, non-tender and non-distended; Negative for hepatosplenomegaly Auscultation: normoactive bowel sounds Extremity normal to inspection, full ROM and no clubbing, cyanosis or edema Skin no rashes or lesions noted, no wounds and no petechiae Neuro oriented x3, CN's II-XII intact bilaterally and moves all extremities Sensorium / Orientation: alert Speech: speech normal Motor Exam: strength 5/5 throughout Psych mental status grossly normal, affect normal and denies hallucinations ABG / Lab / Microbiology Data Result Diagrams: 09/18/20 23:30 09/21/20 14:44 D/C Instructions Discharge Diet: No restrictions Please Follow Up With: PCP When: 2-4 WEEKS. Meaningful Use Info Meaningful Use Diagnoses (Choose all that apply): None applicable Discharge Plan Admission Admit Date/Time: 09/19/20 00:55 Primary Reason for Your Visit: Acute alcohol withdrawal Attending Provider: Beverley Mota Discharge Orders/Prescriptions Prescriptions: Continued gabapentin 600 mg Tablet 600 mg PO TID RF: 0 paroxetine HCl [Paxil] 30 mg Tablet 60 mg PO DAILY RF: 0 buspirone 10 mg Tablet 10 mg PO QHS RF: 0 hydroxyzine pamoate [Vistaril] 25 mg Capsule 25 mg PO BID RF: 0 methocarbamol 750 mg Tablet 750 mg PO Q8H Qty: 90 RF: 0 Referrals / Follow Up: LUISITO TAVARES [Other] - Within 1 Month Disposition Disposition (needs filled in before D/C Order can be placed): Home, self care Charges/Coding Visit Charges Inpatient E&M: 98394 Disch Hosp
== END 2020-09-23 11:17 | disposition home or self-care (01) | DRG 775 ==
LOC: ED 09-19 00:05 → MS3 09-19 00:23
PROVIDERS: Family Medicine; Admitting Provider Internal Medicine; Emergency Provider Emergency Medicine; Visit Provider Hospitalist
DX: F10.239 Alcohol dependence with withdrawal, unspecified (principal); M50.10 Cervical disc disorder with radiculopathy, unspecified cervical region; F17.210 Nicotine dependence, cigarettes, uncomplicated; Y90.8 Blood alcohol level of 240 mg/100 ml or more; F32.9 Major depressive disorder, single episode, unspecified; F41.9 Anxiety disorder, unspecified; G25.81 Restless legs syndrome; R19.7 Diarrhea, unspecified; Z91.81 History of falling; E87.6 Hypokalemia; E66.9 Obesity, unspecified; Z68.30 Body mass index [BMI] 30.0-30.9, adult
CPT/HCPCS: 36415; 70450; 80048; 80076; 80307; 82077; 83735; 84100; 84703; 85025; 97802; 99283; 99406; A4216